=== PATIENT | female | born 1980 | race Asian ===

== ENCOUNTER 2019-06-28 08:18 | Day surgery (SDC) | payer OTHER ==
[~2019-06-28 08:18] MED LIST: BACITRACIN 50000 UNIT VIAL ONE; CEFAZOLIN SODIUM 1 GM/VIAL ONE; GENTAMICIN SULF 80 MG/2ML INJ ONE; NS 0.9% VIAL 20 ML ONE; Ringers Lactate 1,000 ML IV ONE
[2019-06-28] MEDS ORDERED: NS 0.9% VIAL 40 ML ONE (08:23)
[2019-06-28] MEDS ORDERED: LIDOCAINE 1% W/EPI 1:100,000 MDV 20 ML VIAL ONE (08:24)
[2019-06-28] MEDS ORDERED: GLYCOPYRROLATE 0.2 MG/ML SYR ONE (08:31)
[2019-06-28] MEDS ORDERED: propofoL 200 MG/20 ML VIAL IV ONE (08:31)
[2019-06-28] MEDS ORDERED: MIDAZOLAM HCL 2 MG/2 ML INJ ONE (08:31)
[2019-06-28] MEDS ORDERED: FENTANYL CITR 250 MCG/5 ML ONE (08:32)
[2019-06-28] MEDS ORDERED: ROCURONIUM 50 MG/5 ML VIAL IV ONE ×2 (08:32→11:54)
[2019-06-28] MEDS ORDERED: LIDOCAINE 2% MPF 5 ML VIAL ONE (08:32)
[2019-06-28] MEDS ORDERED: Ringers Lactate 1,000 ML IV ONE ×3 (08:51→14:45)
[2019-06-28] MEDS ORDERED: SCOPOLAMINE HYDROBROMIDE PATCH TD ONE (08:51)
[2019-06-28] MEDS ORDERED: CEFAZOLIN/SWI 1gm 1 GM/10 ML SYR ONE (08:51)
[2019-06-28] MEDS ORDERED: ONDANSETRON 4 MG/2 ML VIAL ONE ×2 (10:35→16:49)
[2019-06-28] MEDS ORDERED: MORPHINE 10 MG/ML VIAL ONE ×2 (11:06→14:42)
[2019-06-28] MEDS ORDERED: EPHEDRINE SULF 50 MG/ML VIAL ONE (11:16)
[2019-06-28] MEDS ORDERED: FENTANYL CITR 100 MCG/2 ML ONE ×2 (13:01→13:54)
[2019-06-28] MEDS ORDERED: dexAMETHasone 10 MG/ML VIAL ONE (13:02)
[2019-06-28] MEDS ORDERED: KETOROLAC 30 MG/ML INJ ONE (13:02)
[2019-06-28] MEDS ORDERED: NS 0.9% VIAL 10 ML ONE (14:00)
[2019-06-28] MEDS ORDERED: Phenylephrine HCl 10 MG/ML 1 ML VIAL ONE (14:00)
[2019-06-28] MEDS ORDERED: Mastisol Adhesive Liq ONE (14:09)
[2019-06-28] MEDS ORDERED: ALBUMIN HUM 5% 250 ML IV ONE (14:45)
[2019-06-28] MEDS ORDERED: ESMOLOL HCL 10 ML IV ONE (15:51)
[2019-06-28] MEDS: METOPROLOL TARTRATE 5 MG/5 ML INJ IV ONE ×2 (16:01→16:16)
[2019-06-28] MEDS: HYDROMORPHONE HCL 1 MG/ML INJ ONE ×4 (16:19→16:38)
[2019-06-28] MEDS ORDERED: CODEINE 30MG/APAP 300MG TAB ONE (17:45)
[2019-06-28] MEDS ORDERED: CODEINE 30MG/APAP 300MG TAB PO ONE (17:50)
[2019-06-28 18:12] VITALS: BP 117/72; TEMP 97.6; O2SAT 94
--- NOTE | 2019-06-29 04:52 | OP ---
Surgeon: Edi Seals MD Preform Machine Operator: Lawrence. Preoperative Diagnosis: Breast enlargement and descent. Postoperative Diagnosis: Breast enlargement and descent. Procedure: Reduction and lift. Anesthesia: General. Procedure In Detail: After satisfactory induction of general anesthesia, the chest was prepped with DuraPrep, dry sterile drapes applied in the usual manner. A 5 cm template was used to outline the ri ght and left areolas. Incision was made on the areola and then transverse and curvilinear intervenin g skin was de-epithelialized with dermabrader and EpiCut. A transverse lateral incision was made wit h electrocautery. Flap was thinned to 1.5 cm, elevated cephalad towards the clavicle, sternum, and a nterior axillary line on both sides. The patient then had the inferior incision made and then excess lateral tissue from the rest was incised with a scalpel and electrocautery. After this was complete d, cauterization was then performed. The de-epithelialized tissue formed with a cone with 2-0 PDS collazo tures and then straps were elevated at 12 o'clock, 1:30, and 3 o'clock positions from the right breas t. After this was done, the straps were then woven in and out the pectoralis major muscle, back to t he base of the cone, back to pectoralis muscle, back to base of the cone, tied to themselves with 2-0 PDS suture. This was done from the 12 o'clock to 1:30 straps. The 3 o'clock strap was sewn over th e sternum with 3 o'clock position. A mirror was proceeded down the left side. The amount of tissue ultimately removed from right breast was 854, left breast 666. The wound was carefully stapled shut. Dog ear was marked out. Patient was returned to spine. Wound was irrigated with antibiotic soluti on. A 10 KRISTIE brought out the axilla and sewn in place with 2-0 silk, and then after dog ear was excis ed, the wound was closed with 3-0 Vicryl subcu, 3-0 PDS running subcuticular tied in the vertical cristobal idian of each breast. Left side done in an identical manner. Patient was sat up. Site for new nipp le-areolar complex was marked out with a 5 cm template. Tissue was incised with a scalpel. Nipple w as delivered, and the areas were sewn with interrupted 4-0 PDS, followed by 4-0 PDS running subcuticu lar. Dressings of tincture of benzoin, Steri-Strips, 5 x 5s, fluffs, and David wrap. Patient tolerate d the procedure well. The amount removed from the right breast was 854, left breast was 666 g. MARI/MODDarian Voice ID: [id number] Report ID: [id number]
== END 2019-06-28 18:37 | disposition home or self-care (01) ==
LOC: OR 08:18
PROVIDERS: ATTEND Specialist
PROC: 0H0V0ZZ Alteration of Bilateral Breast, Open Approach (ICD-10-PCS; 2019-06-28)
PROC: 0H0V0ZZ Alteration of Bilateral Breast, Open Approach (ICD-10-PCS; principal; 2019-06-28 09:45)
DX: N62 Hypertrophy of breast (principal); N64.81 Ptosis of breast
CPT/HCPCS: 81025; 88305; 19316; 19318; J2704; J2370; J1580; J2250; J3010 ×3; J1100; P9045; J1170 ×2; J0690 ×2; J7120 ×4; J2405 ×2